=== PATIENT | female | born 1965 ===

== ENCOUNTER 2018-08-12 06:06 | Day surgery (SDC) | payer BC ==
[~2018-08-12] VITALS: Ht 167.6 cm; Wt 111.6 kg
[~2018-08-12 06:06] MED LIST: DYA375C PO; FLUT1SPR5; IBUP200C3 PO; OME20T PO
[2018-08-12] MEDS ORDERED: CLINDAMYCIN 900MG IV 50 ML IV ONE (07:34)
[2018-08-12] MEDS ORDERED: LIDOCAINE 1% INJ PF 5ML AMP ONE (07:57)
[2018-08-12] MEDS ORDERED: MIDAZOLAM HCL 1MG/1ML-2 ML VIAL ONE (07:57)
[2018-08-12] MEDS ORDERED: SUCCINYLCHOLINE CHLORIDE 20 MG/ML 10ML VIAL IV ONE (08:21)
[2018-08-12] MEDS ORDERED: PROPOFOL 10 MG/ML 20 ML IV ONE (08:35)
[2018-08-12] MEDS ORDERED: ROCURONIUM 10MG/ML 10ML VIAL IV ONE (08:35)
[2018-08-12] MEDS ORDERED: METOCLOPRAMIDE HCL 5MG/ml INJ 2ml VIAL ONE (08:37)
[2018-08-12] MEDS ORDERED: fentaNYL CITRATE 100 MCG/2 ML VL ONE (08:45)
[2018-08-12] MEDS ORDERED: LIDOCAINE 1% HCL (LOCAL ANESTH.) INJ 20ML MDV ONE (08:57)
[2018-08-12] MEDS ORDERED: BUPIVACAINE 0.25% INJ 50ML VIAL ONE (08:57)
[2018-08-12] MEDS ORDERED: HYDROmorphone HCL 2 MG/ML VL IV PRN ×2 (09:00)
[2018-08-12] MEDS ORDERED: ONDANSETRON HCL 4 MG/2 ML VIAL IV ONE (09:00)
[2018-08-12] MEDS ORDERED: NALOXONE HCL 0.4 MG/ML VIAL IV PRN (09:00)
[2018-08-12] MEDS ORDERED: NEOSTIGMINE 1 MG/ML INJ (10mg/10ML VIAL) ONE (09:20)
[2018-08-12] MEDS ORDERED: GLYCOPYRROLATE 0.2 MG/ML 1ML VIAL ONE (09:20)
[2018-08-12 10:32] VITALS: BP 137/66
== END 2018-08-12 10:45 | disposition home or self-care (01) ==
LOC: SUR 06:06
PROVIDERS: ATTEND Orthopaedic Surgery Adult Reconstructive Orthopaedic Surgery
DX: S83.241A Other tear of medial meniscus, current injury, right knee, initial encounter (principal); M17.11 Unilateral primary osteoarthritis, right knee; S83.91XA Sprain of unspecified site of right knee, initial encounter; E66.9 Obesity, unspecified; F10.99 Alcohol use, unspecified with unspecified alcohol-induced disorder; K21.9 Gastro-esophageal reflux disease without esophagitis; I10 Essential (primary) hypertension; M19.90 Unspecified osteoarthritis, unspecified site; G47.33 Obstructive sleep apnea (adult) (pediatric); Z82.49 Family history of ischemic heart disease and other diseases of the circulatory system; Z68.39 Body mass index [BMI] 39.0-39.9, adult; Z90.710 Acquired absence of both cervix and uterus; Z90.49 Acquired absence of other specified parts of digestive tract; Z88.5 Allergy status to narcotic agent; Z79.1 Long term (current) use of non-steroidal anti-inflammatories (NSAID); Z79.899 Other long term (current) drug therapy; Z83.3 Family history of diabetes mellitus; Z82.61 Family history of arthritis; Z98.890 Other specified postprocedural states; X58.XXXA Exposure to other specified factors, initial encounter; Y93.89 Activity, other specified; Y92.89 Other specified places as the place of occurrence of the external cause; Y99.8 Other external cause status
CPT/HCPCS: 29881; J0330; J1170; J2001; J2250; J2405; J2704; J2765; J3010; J3490